=== PATIENT | female | born 2000 | race African-American/Black ===

== ENCOUNTER 2025-10-09 10:18 | Emergency (ER) | payer OTHER ==
[~2025-10-09] VITALS: Ht 157.5 cm; Wt 56.2 kg
[2025-10-09] MEDS ORDERED: AMOX875T2 PO (10:32)
[2025-10-09 13:18] VITALS: BP 121/69; TEMP 97.6; O2SAT 100
== END 2025-10-09 13:32 | disposition home or self-care (01) ==
LOC: M ED 11:09
DX: Z32.01 Encounter for pregnancy test, result positive (principal); Z79.2 Long term (current) use of antibiotics